=== PATIENT | female | born 1985 | race African-American/Black ===

== ENCOUNTER 2017-01-20 05:59 | Day surgery (SDC) | payer MEDICAID, OTHER ==
[2017-01-20] MEDS ORDERED: NACL BACTERIOSTATIC INFILTRATI ONE (06:39)
--- NOTE | 2017-01-20 06:57 | Short Stay Summary ---
Short Stay Documentation Date of service: 01/20/17 Narrative H&P: Pt is a 31yo AF LMP 12/29/16 presents for surgical evaluation and treatment of prolonged heavy vaginal bleeding unresponsive to hormonal therapy including a Mirena IUD. She now presents for a Novasure endometrial ablation. - History Principal diagnosis: Menorrhagia H&P: obtained from office Past Medical History: No medical history Past Surgical History: Other (D&C; BTL) Social history: no significant social history, - Allergies and Medications Current Medications: Allergies No Known Allergies Allergy (Verified 01/18/17 10:21) Home Medications Medication Instructions Recorded Confirmed Last Taken Type Loratadine [Claritin] 10 mg PO DAILY 01/18/17 01/18/17 Unknown History Active Medications Cefazolin Sodium (Ancef/Sterile Water 2 Gm/20 Ml) 2 gm in 20 mls @ 80 mls/hr IV PREOP NR PRN Reason: Protocol - Physical exam General appearance: no acute distress Integumentary: no rash HEENT: Atraumatic Lungs: Clear to auscultation Breasts: deferred Heart: Regular rate Gastrointestinal: normal Female Genitourinary: deferred Rectal Exam: deferred Extremities: No edema Neurological: Normal gait, Normal speech - Brief post op/procedure progress note Date of procedure: 01/20/17 Pre-op diagnosis: Menorrhagia Post-op diagnosis: same Procedure: 1. Hysteroscopy 2. Novasure endometrial ablation Anesthesia: MAC Findings: Uterine cavity length 5.0cm, cavity width 4.5cm and 124 Nash of Power was used for 89 seconds to perform the ablation. Surgeon: MARY SANDOVAL Estimated blood loss: minimal Pathology: none Condition: stable - Hospital course Hospital course: Unremarkable. - Disposition Condition at discharge: Good Disposition: DC-01 TO HOME OR SELFCARE - Discharge Diagnoses (1) Menorrhagia with irregular cycle Status: Resolved Short Stay Discharge Plan Activity: no restrictions Diet: regular Follow up with: MARY SANDOVAL MD [Primary Care Provider] - 14 Days Prescriptions: HYDROcodone/APAP 5-325 [[place] 5/325] 1 each PO Q6HR PRN #10 tablet PRN Reason: Pain Ibuprofen [Motrin] 800 mg PO Q8HR PRN #30 tablet PRN Reason: Moder Pain Unrelieved By [place]
[2017-01-20 07:00] LABS: Hematocrit 41.1 % (30.3-42.9); Hemoglobin 13.8 gm/dl (10.1-14.3)
[2017-01-20] MEDS ORDERED: LACTATED RINGERS 1,000 ML IV SCH ×2 (07:00)
[2017-01-20] MEDS ORDERED: TRANSDERM-SCOP TD NR (07:00)
[2017-01-20] MEDS ORDERED: ANCEF/STERILE WATER 2 GM/20 ML 2 GM/20 ML SYRINGE IV NR (07:00)
[2017-01-20] MEDS ORDERED: PEPCID PO NR (07:00)
--- NOTE | 2017-01-20 07:01 | Anesthesia Day of Surgery ---
Anesthesia Day of Surgery - Day of Surgery Patient Examined: Yes Patient H&P Reviewed: Yes Patient is NPO: Yes
--- NOTE | 2017-01-20 07:01 | Anesthesia Consultation ---
Anesthesia Consult and Med Hx Date of service: 01/20/17 - Airway Anesthetic Teeth Evaluation: Good ROM Head & Neck: Adequate Mental/Hyoid Distance: Adequate Mallampati Class: Class II Intubation Access Assessment: Good - Pulmonary Exam CTA: Yes - Cardiac Exam Cardiac Exam: No Murmur - Pre-Operative Health Status ASA Pre-Surgery Classification: ASA1 Proposed Anesthetic Plan: General - Pulmonary Hx Smoking: No Hx Asthma: No COPD: No Hx Pneumonia: No - Cardiovascular System Hx Hypertension: No - Central Nervous System Hx Seizures: No Hx Psychiatric Problems: No - Endocrine Hx Renal Disease: No Hx End Stage Renal Disease: No Hx Hypothyroidism: No Hx Hyperthyroidism: No - Hematic Hx Anemia: No Hx Sickle Cell Disease: No - Other Systems Hx Alcohol Use: Yes (occas) Hx Substance Use: No Hx Cancer: No Hx Obesity: No
[2017-01-20] MEDS ORDERED: VERSED IV ONE (07:15)
[2017-01-20] MEDS ORDERED: SUBLIMAZE ONE (07:32)
[2017-01-20] MEDS ORDERED: XYLOCAINE MPF 2% ONE (07:32)
[2017-01-20] MEDS ORDERED: DIPRIVAN 10 MG/ML IV ONE (07:33)
[2017-01-20] MEDS ORDERED: SILVER NITRATE TP ONE (07:39)
[2017-01-20] MEDS ORDERED: ZOFRAN IV NR (08:00)
[2017-01-20] MEDS ORDERED: NACL 0.9% IR ONE (08:19)
[2017-01-20] MEDS ORDERED: LACTATED RINGERS 1,000 ML ONE (08:26)
[2017-01-20] MEDS ORDERED: DECADRON ONE (08:26)
--- NOTE | 2017-01-20 08:37 | Operative Report ---
Operative Report Operative Report: Date of procedure: 01/20/2017 Pre-operative diagnosis: Menorrhagia Post-operative diagnosis: Same Procedure name(s): 1. Hysteroscopy 2. NovaSure endometrial ablation Surgeon: Marcelo Francois MD Security Tech: None Anesthesia: Gen. mask by Dr. Linton EBL: Less than 10 mL's Findings: Uterine cavity without any masses seen. Uterine cavity length 5 cm, cavity width 4.5 cm and 124 W of Power was used for 89 seconds to perform the ablation Procedure: After the patient was correctly identified, she was prepped and draped in the usual sterile fashion and placed in the dorsolithotomy position. The bladder was first emptied using straight catheter, and next the speculum was placed in the vaginal vault and the anterior lip of the cervix was grasped using single-tooth tenaculum. The uterus is sounded to 10 cm, and the uterine length was calculated to 5 cm. The hysteroscope was then introduced into the uterine cavity, show some areas of lush endometrial tissue, but no masses were seen. The hysteroscope was then removed and replaced with the NovaSure device. The uterine cavity width was 4.5 cm, and after the normal manipulation 124 W of Power was used for 89 seconds to perform the ablation. The hysteroscope was then reintroduced into the uterine cavity, and excellent ablation was confirmed. At this point the procedure was considered complete. All instruments removed from the vagina. The patient tolerated the procedure well and was transferred to recovery in stable condition.
[2017-01-20] MEDS: DILAUDID IV PRN ×2 (08:42→08:50)
[2017-01-20] MEDS ORDERED: MARCAINE 0.5% 0 ML INFILTRATI ONE (09:49)
[2017-01-20] MEDS ORDERED: ADRENALIN ONE (09:49)
[2017-01-20] MEDS ORDERED: XYLOCAINE 1% 20 mL ONE (09:49)
[2017-01-20] MEDS ORDERED: NORCO 5/325 PO PRN (10:00)
[2017-01-20 10:49] VITALS: BP 148/85
== END 2017-01-20 10:40 | disposition home or self-care (01) ==
LOC: OR 05:59
PROVIDERS: ATTEND Obstetrics & Gynecology
DX: N92.0 Excessive and frequent menstruation with regular cycle (principal); Z98.51 Tubal ligation status
CPT/HCPCS: 36415; 58563; 81025; 85014; 85018; A4217; J0690; J1100; J1170; J2250; J2405; J2704; J3010; J7120; J0171